=== PATIENT | male | born 1935 | race Caucasian/White ===

== ENCOUNTER 2020-01-22 07:35 | Emergency (ER) | payer MEDICAID, OTHER ==
[~2020-01-22] VITALS: Ht 170.2 cm; Wt 95.3 kg
--- NOTE | 2020-01-22 07:52 | NUR ---
Dr Ward at the bedside for MSE.
[2020-01-22 08:12] VITALS: BP 146/59
--- NOTE | 2020-01-22 08:20 | NUR ---
Patient discharged to home in stable condition. Written and verbal after care instructions given. Patient verbalizes understanding of instructions. Stressed follow up or return to ER for worsening s/s. PT walked out of ER w/ steady gait, awaiting in waiting room for Taxi.
== END 2020-01-22 08:22 | disposition home or self-care (01) ==
LOC: ER 07:35
DX: S09.90XA Unspecified injury of head, initial encounter (principal); W01.0XXA Fall on same level from slipping, tripping and stumbling without subsequent striking against object, initial encounter; Y93.53 Activity, golf; Y92.39 Other specified sports and athletic area as the place of occurrence of the external cause; Z88.0 Allergy status to penicillin; N40.0 Benign prostatic hyperplasia without lower urinary tract symptoms; I25.10 Atherosclerotic heart disease of native coronary artery without angina pectoris; Z88.6 Allergy status to analgesic agent; R42 Dizziness and giddiness; R40.2412 Glasgow coma scale score 13-15, at arrival to emergency department
CPT/HCPCS: A4663

== ENCOUNTER 2022-05-16 17:37 | Emergency (ER) | payer OTHER ==
[~2022-05-16] VITALS: Ht 170.2 cm; Wt 77.1 kg
[2022-05-16 19:04] LABS: HEMATOCRIT 31.3 % (36.7-47.1); MEAN CORPUSCULAR HEMOGLOBIN 27.4 uug (23.8-33.4); MEAN CORPUSCULAR VOLUME 85.1 fL (73.0-96.2); PLATELET COUNT (AUTO) 254 K/uL (152-348)
[2022-05-16 19:07] LABS: *BILIRUBIN,URIN NEGATIVE (NEGATIVE); *BLOOD, URINE 3+ (NEGATIVE); *CLARITY,URINE SLIGHTLY CLOUDY (CLEAR); *COLOR,URINE YELLOW (YELLOW); *KETONES,URINE NEGATIVE (NEGATIVE); *UROBILINOGEN,URINE 0.2 E.U./dl (NORMAL); LEUKOCYTE ESTERASE ,URINE 1+ (NEGATIVE); NITRITE, URINE NEGATIVE (NEGATIVE); PH,URINE 5.5 (5.0-8.0); UGLUCOSE NEGATIVE (NEGATIVE)
--- NOTE | 2022-05-16 19:20 | NUR ---
Received report from OLGA Kearney.
[2022-05-16 19:25] LABS: MAGNESIUM 2.2 mg/dL (1.8-2.4)
[2022-05-16 19:28] LABS: CARBON DIOXIDE 24 mmol/L (21-32); CHLORIDE 100 mmol/L (98-107); GLUCOSE 123 mg/dL (74-106); POTASSIUM 4.5 mmol/L (3.5-5.1); UREA NITROGEN, BLOOD 29 mg/dL (7-18)
[2022-05-16 21:01] LABS: BACTERIA,URINE MODERATE /HPF (NONE SEEN); RBC,URINE 20-50 /HPF (0-3)
[2022-05-16 21:02] LABS: SQUAMOUS EPITHELIAL CELL,UR MODERATE /HPF (NONE SEEN); YEAST,URINE MODERATE /HPF (NONE SEEN)
[2022-05-16 21:07] LABS: URIC ACID CRYSTALS,URINE MODERATE /HPF (NONE SEEN)
--- NOTE | 2022-05-16 22:00 | NUR ---
Taxi voucher provided for patient.
--- NOTE | 2022-05-16 22:15 | NUR ---
Patient discharged to home in stable condition. A/O x 4. NAD noted. Ambulatory with a steady gait. All belongings with patient. Written and verbal after care instructions given. Patient verbalizes understanding of instructions. Stressed follow up or return to ER for worsening s/s.
[2022-05-17 02:30] VITALS: BP 110/65
== END 2022-05-16 22:45 | disposition home or self-care (01) ==
LOC: ER 17:37
DX: R53.1 Weakness (principal); N18.9 Chronic kidney disease, unspecified; D64.9 Anemia, unspecified; R94.31 Abnormal electrocardiogram [ECG] [EKG]; I25.10 Atherosclerotic heart disease of native coronary artery without angina pectoris; Z88.6 Allergy status to analgesic agent; Z88.0 Allergy status to penicillin; Z98.890 Other specified postprocedural states; S51.011A Laceration without foreign body of right elbow, initial encounter; W19.XXXA Unspecified fall, initial encounter; Y93.89 Activity, other specified; Y92.010 Kitchen of single-family (private) house as the place of occurrence of the external cause; Z87.891 Personal history of nicotine dependence
CPT/HCPCS: 36415; 83735; 84484; 85025; 93005; A4663